=== PATIENT | female | born 1970 | race Caucasian/White ===

== ENCOUNTER 2019-05-26 05:52 | Inpatient (IN) | payer BC, OTHER ==
[2019-05-07 12:44] LABS: HEMOGLOBIN 14.8 gm/dL (12.0-15.0); MCH 31.9 pg (26.0-34.0); MCHC 34.5 g/dL (28.0-37.0); MCV 92.3 fL (80.0-100.0); RBC 4.65 mil/uL (4.20-5.00); RDW 12.9 % (10.5-14.5); URINE BILIRUBIN NEGATIVE (Negative); URINE BLOOD NEGATIVE (Negative); URINE CLARITY CLEAR; URINE COLOR YELLOW; URINE GLUCOSE-RANDOM* NEGATIVE (Negative); URINE KETONES NEGATIVE (Negative); URINE LEUKOCYTES-REFLEX TRACE (Negative); URINE NITRITE-REFLEX NEGATIVE (Negative); URINE PROTEIN (DIPSTICK) NEGATIVE (Negative); URINE SPECIFIC GRAVITY <= 1.005 (1.005-1.035); URINE UROBILINOGEN 0.2 E.U./dl (0.2-1.0); WBC 4.8 thou/uL (4.0-11.0)
[2019-05-07 12:50] LABS: ALBUMIN 4.7 g/dL (3.4-5.0); CALCIUM 10.3 mg/dL (8.5-10.1); CREATININE 0.8 mg/dL (0.6-1.0); POTASSIUM 3.9 mmol/L (3.5-5.1)
[2019-05-07 12:57] LABS: PROTIME 10.2 Seconds (9.3-11.4)
[~2019-05-26] VITALS: Ht 157.5 cm; Wt 52.2 kg
[~2019-05-26 05:52] MED LIST: ADVIL200 M1 PO; APPLE CIDER VI500 MG PO; MULTI VITAMIN1 EACH PO; PROBIOTIC1 EAC7 PO; VITAMIN B-121000 MC2 SUBLING; [UNRECOGNIZED DRUG - OTHER] PO
[2019-05-26 07:30] VITALS: BP 133/78
--- NOTE | 2019-05-26 12:59 | NUR ---
[facility] PT AT 1200. PT IS A VEGAN. PTS PAIN IS BEING CONTROLLED BY PAIN MEDICATION, SEE EMAR. PT HAD BEA KNEE SX AND WANTS TO HAVE PT TODAY. ADVISED PT TO USE THE BATHROOM TODAY. LUNGS ARE CLEAR AND PULSES ARE STRONG. POLAR PACK IS IN PLACE, CEDRICK DRESSING INTACT AND KNEE HIGH JEANINE HOSE IS IN PLACE. PT IS A FALL RISK AND FALL PRECAUTIONS ARE IN PLACE. WILL CONTINUE TO MONITOR THE PT.
[2019-05-26 19:12] VITALS: BP 117/60
--- NOTE | 2019-05-27 01:19 | NUR ---
ASSUMED PT CARE AT 1900. PT COMPLAINS OF PAIN OF 4 IN BOTH KNEES, PAIN MEDS GIVEN. UP TO THE BATHROOM, STEADY ON FEET. DRESSINGS ON BILATERAL KNEES DRY AND INTACT. TOLERATING REGULAR DIET. FLUIDS AND ANTIBIOTICS INFUSING ORDERED. PT SLEEPING COMFORTABLY NOW.
[2019-05-27 05:18] VITALS: BP 92/57
[2019-05-27 06:08] LABS: HEMATOCRIT 34.3 % (37.0-47.0); HEMOGLOBIN 11.4 gm/dL (12.0-15.0); MCH 31.6 pg (26.0-34.0); MCHC 33.3 g/dL (28.0-37.0); RBC 3.61 mil/uL (4.20-5.00); RDW 13.1 % (10.5-14.5); WBC 5.9 thou/uL (4.0-11.0)
[2019-05-27 07:34] VITALS: BP 117/62
--- NOTE | 2019-05-27 09:54 | NUR ---
INITIAL ASSESSMENT: Pt evaluated for d/c planning needs. Reviewed chart and spoke with nurse and pt. Pt is alert and oriented. Pt lives in house with spouse and was independent with ADL's prior to admission to the hospital. Pt has no DME and has not had home health in the past. Pt will need walker for home use. Contacted [facility] and they will deliver walker to pt prior to d/c. Pt has outpatient PT scheduled for . Will remain available to assist as needed.
[2019-05-27 15:45] VITALS: BP 118/58
--- NOTE | 2019-05-27 17:43 | O ---
[facility] [place] [address] OPERATIVE REPORT Name: DAVON HARPER Room #: 435-P [facility] IN M.R.#: [id number] Admission: 05/26/19 Attend Phys: Kenneth Urbano MD Discharge: Date of : 70 Report #: [id number] THIS REPORT FOR: //name// CC: FAM unknown Kenneth Urbano DATE OF SERVICE: 05/26/2019 PREOPERATIVE DIAGNOSIS: Bilateral knee osteoarthritis. POSTOPERATIVE DIAGNOSIS: Bilateral knee osteoarthritis. PROCEDURE: Bilateral total knee arthroplasty using Navio robotic respiratory care assistant. SURGEON: Kenneth Urbano MD. CISTERN ROOM WORKING SUPERVISOR: Lori Hebert PA-C. ANESTHESIA: General with an adductor canal block. IMPLANTS: [employer]hew size 4 Journey II Oxinium BCS femur, a size 3 tibia, size 10 polyethylene and size 29 patella bilaterally. TOURNIQUET TIME: For the right, we used 58 minutes, for the left was 62 minutes. INDICATIONS FOR CISTERN ROOM WORKING SUPERVISOR: Throughout the case, extensive retraction and manipulation of the knees were required. This was afforded to me by my respiratory care assistant. ESTIMATED BLOOD LOSS: 50 mL. COMPLICATIONS: None. SPECIMENS: None. CONDITION UPON LEAVING THE OPERATING ROOM: Stable. INDICATIONS FOR PROCEDURE: The patient a 48-year-old female with bilateral knee osteoarthritis who failed conservative measures for this and after discussion with her, she elected for bilateral knee arthroplasty. DESCRIPTION OF PROCEDURE: Risks, benefits, alternatives, complications were discussed in detail with the patient including, but not limited to risk of anesthesia, risk of damage to nerves, arteries, blood vessels, risk for infection, bleeding, risk for continued knee pain and need for reoperation. [facility] [address] [place] [address] OPERATIVE REPORT Name: DAVON HARPER Room #: 435-P [facility] IN ..#: [id number] Admission: 05/26/19 Attend Phys: Kenneth Urbano MD Discharge: Date of : 70 Report #: [id number] Informed consent was obtained from the patient. Bilateral knees were appropriately marked in the preoperative holding area. She was brought to the operating room and placed in supine position on operating room table. LMA anesthesia was induced without complication. Tourniquets were placed on bilateral thighs. Bilateral lower extremities were prepped and draped in normal sterile fashion. Timeout was performed properly identifying the patient and procedure as well as the instrumentation and implants. All in the operating room were in agreement. Following dictation applies to bilateral knees. The lower extremity was exsanguinated, tourniquet was inflated. Tourniquet time was 58 minutes for the right and 62 minutes for the left. Standard midline approach to knee was made with 10 blade through the skin. Dissection was taken down sharply to the fascia and deep flaps were developed medially and laterally. Fresh 10 blade was used to make a medial parapatellar arthrotomy and the knee was inspected. There was severe medial compartment osteoarthritis with moderate lateral compartment involvement. It was decided to proceed with total knee arthroplasty. Reference pins were placed in the femur and the tibia, the knees were then digitally mapped using the [email or web address] robotic system. Intraoperative plan was made and we sized a size 4 femur, size 3 tibia, size 10 polyethylene. After acceptance of the intraoperative plan, the distal femoral cut was made with a Navio bur. The distal femoral cutting block was pinned in place and distal femoral cut was made. Attention was turned to the tibia. The remainder of the menisci removed with Bovie cautery. Tibial resection guide was pinned in place using the Navio for placement and tibial resection was made. Flexion and extension gaps were checked and found to have good balance in flexion and extension both medially and laterally. After this, tibia was sized, found to be a size 3. A size 3 tibial trial was placed, pinned and punched. Size 4 femoral trial was placed and box cut was made. This was then trialed with a size 10 polyethylene. Knee was taken through range of motion, found to be stable, found to have a millimeter laxity medially and laterally throughout range of motion of the knee. After this, 9 mm was resected from the posterior surface of the patella and a size 29 patellar trial button was placed. Knee was taken through range of motion, found to be stable, found to have good patellar tracking. After this, trial components were removed. Bony ends were thoroughly irrigated with normal saline. A final size 3 tibia, size 4 Journey II BCS Oxinium femur, and a size 29 patella were cemented in place using standard cementation techniques. While the cement cured, a periarticular injection consisting of morphine, ropivacaine, epinephrine and Toradol was placed around the knee joint capsule. After the cement cured, the tourniquet was deflated. Hemostasis was obtained with Bovie cautery. Final size 10 polyethylene was placed. A gram of vancomycin was placed deep in the joint. The fascia was closed with 0 Vicryl, skin was closed with 2-0 Vicryl, 3-0 Monocryl. Dermabond and a CEDRICK dressing [address] [address] OPERATIVE REPORT Name: DAVON HARPER Room #: 435-P [facility] IN .R.#: [id number] Admission: 05/26/19 Attend Phys: Kenneth Urbano MD Discharge: Date of : 70 Report #: [id number] was applied. The patient tolerated this procedure well and went to the recovery room under care of anesthesia postoperatively. <ELECTRONICALLY SIGNED> By: Kenneth Urbano MD 05/27/19 1743 [id number] Kenneth Urbano MD /nt
[2019-05-27] MEDS ORDERED: ASPIR 8181 MG PO (17:49)
[2019-05-27] MEDS ORDERED: MS CONTIN15 MG PO (17:50)
[2019-05-27] MEDS ORDERED: PERCOCET PO (17:50)
[2019-05-27] MEDS ORDERED: NEURONTIN 300300 M1 PO (17:50)
[2019-05-27 18:20] VITALS: BP 118/58
--- NOTE | 2019-05-27 19:40 | NUR ---
Assumed care of pt at 0700. Pt a&ox4. Dressing c/d/i. Polar packs in place. Jacob hose and SCDs in place. Pt was issued home walker. Pain controlled with prn pain meds. Pt discharged to home.
== END 2019-05-27 19:00 | disposition home or self-care (01) | DRG 462 ==
LOC: TBA 05:52 → PRE 12:02 → 4S 12:33 → PRE 20:30 → 4S 05-27 19:00
PROVIDERS: ADMIT Orthopaedic Surgery
PROC: 0SRC069 Replacement of Right Knee Joint with Oxidized Zirconium on Polyethylene Synthetic Substitute, Cemented, Open Approach (ICD-10-PCS; principal; 2019-05-26)
PROC: 0SRD069 Replacement of Left Knee Joint with Oxidized Zirconium on Polyethylene Synthetic Substitute, Cemented, Open Approach (ICD-10-PCS; principal; 2019-05-26)
PROC: 8E0Y0CZ Robotic Assisted Procedure of Lower Extremity, Open Approach (ICD-10-PCS; principal; 2019-05-26)
DX: M17.0 Bilateral primary osteoarthritis of knee (principal); Z87.891 Personal history of nicotine dependence
CPT/HCPCS: 10102; 50010; 50101; 50415; 50915; 50954; 51225; 51320; 52001; 52282; 53000; 53078; 54118; 55372; 56527; 56528; 57095; 57103; 57110; 57127; 57179; 57180; 62110; 62900; 64039; 70005